=== PATIENT | female | born 1975 | race Caucasian/White ===

== ENCOUNTER 2024-01-01 13:04 | Emergency (ER) | payer OTHER ==
[~2024-01-01] VITALS: Ht 162.6 cm; Wt 90.7 kg
[2024-01-01 13:19] VITALS: TEMP 98
[2024-01-01] MEDS ORDERED: MORPHINE SULFATE INJ 2 MG/ML DISP.SYRIN ONE (14:35)
[2024-01-01] MEDS ORDERED: ONDANSETRON 4 MG TAB.RAPDIS ONE (14:36)
[2024-01-01] MEDS: ONDANSETRON 4 MG TAB.RAPDIS PO ONE (14:39)
[2024-01-01] MEDS: MORPHINE SULFATE INJ 2 MG/ML DISP.SYRIN IM ONE (14:41)
[2024-01-01] MEDS ORDERED: IBUP-1955 PO (16:58)
[2024-01-01] MEDS ORDERED: ONDA4TAB5 PO (16:58)
[2024-01-01] MEDS ORDERED: ACET-2605 PO (16:58)
[2024-01-01 17:10] VITALS: BP 120/70; O2SAT 99
== END 2024-01-01 17:00 | disposition home or self-care (01) ==
LOC: ER 13:58
DX: S09.8XXA Other specified injuries of head, initial encounter (principal); M25.512 Pain in left shoulder; M25.522 Pain in left elbow; W01.0XXA Fall on same level from slipping, tripping and stumbling without subsequent striking against object, initial encounter; Y93.89 Activity, other specified; Y92.89 Other specified places as the place of occurrence of the external cause; Y99.8 Other external cause status
CPT/HCPCS: 99285; 70450; 96372; 73080; 73030; Q0162; J2270